=== PATIENT | female | born 2005 | race Two or more races ===

== ENCOUNTER 2023-05-24 06:09 | Inpatient (IN) ==
[2023-05-24 06:54] LABS: Appearance Urine Cloudy (Clear); Bacteria Urine Automated 1+ (Negative); Bilirubin Urine Negative (Negative); Blood Urine Negative (Negative); Color Urine Yellow; Epithelial Cell Urine Auto >30 /lpf (0-5); Glucose Urine UA Negative (Negative); Ketones Urine Trace (Negative); Leukocyte Esterase Urine 2+ (Negative); Nitrite Urine Negative (Negative); Protein Urine Negative (Negative); RBC Urine Automated 0-4 /hpf (0-4); Specific Gravity Urine 1.028 (1.000-1.030); Urobilinogen Urine Negative (Negative); pH Urine 5.5 (4.5-7.5)
[2023-05-24 07:09] LABS: Basophils # (auto) 0.03 K/uL (0.00-0.20); Basophils % (auto) 0.4 %; Eosinophils # (auto) 0.04 K/uL (0.00-0.50); Eosinophils % (auto) 0.5 %; Hematocrit (blood only) 41.7 % (37.0-47.0); Hemoglobin 13.7 g/dl (12.0-16.0); Immature Granulocytes # (auto) 0.03 K/uL (0.01-0.20); Immature Granulocytes % (auto) 0.4 %; Lymphocytes # (auto) 2.26 K/uL (1.20-3.40); Mean Corpuscular Hemoglobin 28.4 pg (25.0-34.0); Mean Corpuscular Hgb Conc 32.9 g/dL (32.0-36.0); Mean Corpuscular Volume 86.5 fL (80.0-100.0); Mean Platelet Volume 11.2 fL (9.4-12.4); Monocytes # (auto) 0.55 K/uL (0.11-0.59); Monocytes % (auto) 7.1 %; Neutrophils # (auto) 4.87 K/uL (1.40-6.50); Neutrophils % (auto) 62.6 %; Platelet Count 238 K/uL (130-400); RDW Standard Deviation 41.1 fL (36.4-46.3); Red Blood Count 4.82 M/uL (4.20-5.40); White Blood Count 7.78 K/ul (4.8-10.8)
[2023-05-24 07:18] LABS: Mucus Urine Present (None Prsent)
[2023-05-24 07:19] LABS: Amphetamines+Metham, Urine Neg (Neg); Barbiturates, Urine Neg (Neg); Benzodiazepine, Urine Neg (Neg); Cocaine, Urine Neg (Neg); MDMA (Ecstacy), Urine Neg (Neg); Marijuana, Urine Pos (Neg); Methadone, Urine Neg (Neg); Opiate, Urine Neg (Neg); Phencyclidine, Urine Neg (Neg)
[2023-05-24 07:25] LABS: Alanine Aminotransferase 8 U/L (7-52); Albumin Globulin Ratio 1.5 (0.9-2); Albumin Level 4.7 gm/dl (3.4-5.0); Alkaline Phosphatase 48 U/L (34-104); Anion Gap 8 (3-11); Aspartate Aminotransferase 15 U/L (13-39); BUN Creatinine Ratio 15.9 (10-20); Bilirubin,Total 0.4 mg/dl (0.2-1.0); Blood Urea Nitrogen 11 mg/dl (6-23); Calcium 9.2 mg/dl (8.6-10.3); Carbon Dioxide 23 mmol/L (21-32); Chloride 107 mmol/L (98-107); Creatine Kinase 44 U/L (26-192); Creatinine Clr Calc Pharmacy 88.3 ml/min; Est GFR (African American) 145.2 ml/min; Est GFR (Non-African American) 125.3 ml/min; Globulin 3.2 gm/dl (2.5-4.0); Glucose 100 mg/dl (70-99(Fasting)); Magnesium 1.9 mg/dl (1.7-2.4); Potassium 3.6 mmol/L (3.5-5.1); Sodium 138 mmol/L (136-145); Total Protein 7.9 gm/dl (6.0-8.3)
[2023-05-24 07:32] LABS: Acetaminophen 171 ug/ml (10-30); Salicylate < 3.0 mg/dl (3.0-30); Troponin I High Sensitivity < 2.3 pg/ml (0-14)
[2023-05-24 07:56] LABS: Pregnancy Test, Serum Negative (Negative); Prothrombin Time 10.6 Seconds (9.0-12.0)
[2023-05-24] MEDS: SODIUM CHLORIDE 0.9% 1,000 ML IV ONE (08:04)
--- NOTE | 2023-05-24 09:33 | Emergency Department Note ---
Impression & Plan Intentional overdose, Acetaminophen overdose ED Provider Note CHIEF COMPLAINT: Mental health evaluation, overdose HISTORY OF PRESENT ILLNESS: This 18 yo female patient presents to the emergency department with complaints of a Tylenol overdose. The patient states she took "2 handfuls" of extra strength acetaminophen at 5:45 AM. She states her boyfriend informed her that he cheated on her. She has not had thoughts of suicide prior to this. She denies any alcohol or substance abuse otherwise. She denies any history of mental health issues. She does not believe that she is . REVIEW OF SYSTEMS: A review of systems was performed with positives and pertinent negatives listed in the history of present illness. 10 systems were reviewed and are otherwise negative. ALLERGIES: see below MEDICATIONS: see below PMH: see below SOCIAL HISTORY: see below DDx:Mood disorder, infection, hypoglycemia, toxicologic, neurologic, as well as other pathologies. PHYSICAL EXAM: Vital signs reviewed. General: Well-appearing 18-year-old female, in no significant distress. HEENT: No scleral icterus, PERRLA, neck supple. Moist mucous membranes. Cardiovascular: Regular rate and rhythm, no extra sounds. Pulmonary: Clear to auscultation bilaterally, normal work of breathing. Abdomen: Soft, nontender, nondistended, positive bowel sounds. Musculoskeletal: Atraumatic, no peripheral edema. Neurologic: Patient awake alert and oriented x 3, speech is clear Psych: Positive SI with active furtherance, negative HI Skin: Warm, dry, no rash EMERGENCY DEPARTMENT COURSE/MDM: This patient was evaluated and appeared to be in no significant distress. IV access was obtained and laboratory work was drawn. The patient was placed on the manager cardiac, hydrated with normal saline solution. Patient's laboratory work reveals a toxic 5-hour level of Tylenol. Transaminases are not elevated. Per poison control, they have recommended the N-acetylcysteine protocol. Patient was started on the 21-hour protocol and the case was discussed with the hospitalist service for admission and psychiatric consultation. Patient is currently on a 201, voluntary for admission. MONITORING: An order for cardiac monitoring was placed and the patient is noted to be in a normal sinus rhythm at 94 beats per minute. EKG: Normal sinus rhythm with sinus arrhythmia at 89 bpm. QTc is 438. Normal ST segments. No PVC, no PAC. No previous EKGs available. DISPOSITION: Admission Past Med/Surg History Social History Smoking Status: Never smoker Second Hand Exposure: No; Do You Dip or Chew Tobacco: No; Hx Alcohol Use: Yes Hx Substance Use: Yes Last Used Substance: Unknown Preferred Language: Eritrean Communication Ability: Effective Digital Circuit Designer Required: No Beliefs That Will Affect Care: None Current Living Situation Comment: lives in dorm at [facility] Feels Safe at Home: Yes Gender Identity: Female Assistive Devices: Glasses Allergies Allergies Allergy/AdvReac Type Severity Reaction Status Date / Time No Known Allergies Allergy Unverified 05/24/23 07:30 Home Meds Home Medications Medication Instructions Recorded Confirmed No Known Home Medications 05/24/23 05/25/23 Results & Data (ED) Vital Signs Vital Signs - 24 hr 05/24/23 06:15 05/24/23 06:48 05/24/23 07:02 Temperature 36.7 C Temperature Source Oral Pulse Rate 76 80 Pulse Rate [Apical] Pulse Rhythm Regular Pulse Rhythm [Apical] Respiratory Rate 16 18 Respiratory Effort / Characteristics Non-Labored Respiratory Depth Normal Respiratory Pattern Blood Pressure 122/77 Blood Pressure [Left Arm] Blood Pressure Mean 92 Blood Pressure Mean [Left Arm] Blood Pressure Position [Left Arm] Pulse Oximetry 98 99 Oxygen Delivery Method Room Air Room Air Room Air Sepsis Recent Fever Within 48 Hours No Sepsis New/Unexplained Change in Mental Status N/A Sepsis Action Taken by Nursing No Action Required 05/24/23 07:02 05/24/23 08:01 05/24/23 08:19 Temperature Temperature Source Pulse Rate 107 H Pulse Rate [Apical] 112 H 94 H Pulse Rhythm Pulse Rhythm [Apical] Regular Respiratory Rate 14 14 Respiratory Effort / Characteristics Respiratory Depth Respiratory Pattern Blood Pressure Blood Pressure [Left Arm] 112/73 118/92 Blood Pressure Mean Blood Pressure Mean [Left Arm] 86 100 Blood Pressure Position [Left Arm] Pulse Oximetry 96 97 Oxygen Delivery Method Room Air Sepsis Recent Fever Within 48 Hours Sepsis New/Unexplained Change in Mental Status Sepsis Action Taken by Nursing 05/24/23 09:00 05/24/23 10:00 05/24/23 11:04 Temperature Temperature Source Pulse Rate Pulse Rate [Apical] 94 H 85 78 Pulse Rhythm Pulse Rhythm [Apical] Respiratory Rate 14 12 18 Respiratory Effort / Characteristics Non-Labored Spontaneous Respiratory Depth Normal Respiratory Pattern Regular Blood Pressure Blood Pressure [Left Arm] 107/68 90/61 L 82/59 L Blood Pressure Mean Blood Pressure Mean [Left Arm] 81 70 66 Blood Pressure Position [Left Arm] Lying Pulse Oximetry 99 98 97 Oxygen Delivery Method Room Air Room Air Room Air Sepsis Recent Fever Within 48 Hours Sepsis New/Unexplained Change in Mental Status Sepsis Action Taken by Nursing 05/24/23 12:02 05/24/23 12:18 Temperature Temperature Source Pulse Rate 90 Pulse Rate [Apical] 79 Pulse Rhythm Pulse Rhythm [Apical] Respiratory Rate 18 Respiratory Effort / Characteristics Non-Labored Spontaneous Respiratory Depth Normal Respiratory Pattern Regular Blood Pressure Blood Pressure [Left Arm] 106/72 Blood Pressure Mean Blood Pressure Mean [Left Arm] 83 Blood Pressure Position [Left Arm] Sitting Pulse Oximetry 98 Oxygen Delivery Method Room Air Sepsis Recent Fever Within 48 Hours Sepsis New/Unexplained Change in Mental Status Sepsis Action Taken by [facility] Medications Current Medication List: was personally reviewed by me Laboratory Data Attestation: I reviewed the patient's lab results. 05/25/23 06:13 05/25/23 15:59 Lab Results 05/24/23 05/24/23 05/24/23 Range/Units 06:22 06:43 06:45 WBC 7.78 (4.8-10.8) K/ul RBC 4.82 (4.20-5.40) M/uL Hgb 13.7 (12.0-16.0) g/dl Hct 41.7 (37.0-47.0) % MCV 86.5 (80.0-100.0) fL MCH 28.4 (25.0-34.0) pg MCHC 32.9 (32.0-36.0) g/dL RDW Std Deviation 41.1 (36.4-46.3) fL RDW Coeff of Naomi 13.0 (11.5-14.5) % Plt Count 238 (130-400) K/uL MPV 11.2 (9.4-12.4) fL Immature Gran % (Auto) 0.4 % Neut % (Auto) 62.6 % Lymph % (Auto) 29.0 % [place] % (Auto) 7.1 % Eos % (Auto) 0.5 % Baso % (Auto) 0.4 % Neut # (Auto) 4.87 (1.40-6.50) K/uL Lymph # (Auto) 2.26 (1.20-3.40) K/uL [place] # (Auto) 0.55 (0.11-0.59) K/uL Eos # (Auto) 0.04 (0.00-0.50) K/uL Baso # (Auto) 0.03 (0.00-0.20) K/uL Immature Gran # (Auto) 0.03 (0.01-0.20) K/uL PT 10.6 (9.0-12.0) Seconds INR 1.0 (0.9-1.1) Sodium 138 (136-145) mmol/L Potassium 3.6 (3.5-5.1) mmol/L Chloride 107 (98-107) mmol/L Carbon Dioxide 23 (21-32) mmol/L Anion Gap 8 (3-11) BUN 11 (6-23) mg/dl Creatinine 0.69 (0.6-1.2) mg/dl Est Cr Clr Drug Dosing 88.3 ml/min Est GFR ( Amer) 145.2 ml/min Est GFR (Non-Af Amer) 125.3 ml/min BUN/Creatinine Ratio 15.9 (10-20) Glucose 100 H (70-99(Fasting)) mg/dl Calcium 9.2 (8.6-10.3) mg/dl Magnesium 1.9 (1.7-2.4) mg/dl Total Bilirubin 0.4 (0.2-1.0) mg/dl Direct Bilirubin AST 15 (13-39) U/L ALT 8 (7-52) U/L Alkaline Phosphatase 48 (34-104) U/L Total Creatine Kinase 44 (26-192) U/L Troponin I High Sens < 2.3 (0-14) pg/ml Total Protein 7.9 (6.0-8.3) gm/dl Albumin 4.7 (3.4-5.0) gm/dl Globulin 3.2 (2.5-4.0) gm/dl Albumin/Globulin Ratio 1.5 (0.9-2) HCG, Qual Negative (Negative) Urine Color Yellow Urine Appearance Cloudy A (Clear) Urine pH 5.5 (4.5-7.5) Ur Specific [place] 1.028 (1.000-1.030) Urine Protein Negative (Negative) Urine Glucose (UA) Negative (Negative) Urine Ketones Trace H (Negative) Urine Blood Negative (Negative) Urine Nitrite Negative (Negative) Urine Bilirubin Negative (Negative) Urine Urobilinogen Negative (Negative) Ur Leukocyte Esterase 2+ H (Negative) Urine WBC (Auto) 10-30 H (0-5) /hpf Urine RBC (Auto) 0-4 (0-4) /hpf U Hyaline Cast (Auto) 1-5 (0-5) /lpf U Epithel Cells (Auto) >30 H (0-5) /lpf Urine Bacteria (Auto) 1+ H (Negative) Urine Mucus Present A (None Prsent) Salicylates < 3.0 L (3.0-30) mg/dl Urine Opiates Screen Neg (Neg) Ur Methadone, Qual Neg (Neg) Acetaminophen 171 H* (10-30) ug/ml Urine Barbiturates Neg (Neg) Ur Phencyclidine (PCP) Neg (Neg) U Amphetamin/Meth Scrn Neg (Neg) MDMA (Ecstasy) Screen Neg (Neg) U Benzodiazepines Scrn Neg (Neg) Ur Cocaine Metabolite Neg (Neg) U Marijuana (THC) Screen Pos H (Neg) Ethyl Alcohol mg/dL < 10.0 (<10.0) mg/dl SARS-CoV-2, RNA, NAAT NEGATIVE (NEGATIVE) 05/24/23 05/24/23 Range/Units 10:04 10:27 WBC (4.8-10.8) K/ul RBC (4.20-5.40) M/uL Hgb (12.0-16.0) g/dl Hct (37.0-47.0) % MCV (80.0-100.0) fL MCH (25.0-34.0) pg MCHC (32.0-36.0) g/dL RDW Std Deviation (36.4-46.3) fL RDW Coeff of Naomi (11.5-14.5) % Plt Count (130-400) K/uL MPV (9.4-12.4) fL Immature Gran % (Auto) % Neut % (Auto) % Lymph % (Auto) % [place] % (Auto) % Eos % (Auto) % Baso % (Auto) % Neut # (Auto) (1.40-6.50) K/uL Lymph # (Auto) (1.20-3.40) K/uL [place] # (Auto) (0.11-0.59) K/uL Eos # (Auto) (0.00-0.50) K/uL Baso # (Auto) (0.00-0.20) K/uL Immature Gran # (Auto) (0.01-0.20) K/uL PT (9.0-12.0) Seconds INR (0.9-1.1) Sodium Cancelled 140 (136-145) mmol/L Potassium Cancelled 3.6 (3.5-5.1) mmol/L Chloride Cancelled 114 H (98-107) mmol/L Carbon Dioxide Cancelled 20 L (21-32) mmol/L Anion Gap Cancelled 6 (3-11) BUN Cancelled 8 (6-23) mg/dl Creatinine Cancelled 0.58 L (0.6-1.2) mg/dl Est Cr Clr Drug Dosing Cancelled 105.0 ml/min Est GFR ( Amer) Cancelled > 150.0 ml/min Est GFR (Non-Af Amer) Cancelled 132.7 ml/min BUN/Creatinine Ratio Cancelled 13.8 (10-20) Glucose Cancelled 107 H (70-99(Fasting)) mg/dl Calcium Cancelled 8.3 L (8.6-10.3) mg/dl Magnesium (1.7-2.4) mg/dl Total Bilirubin Cancelled 0.4 (0.2-1.0) mg/dl Direct Bilirubin Cancelled 0.0 AST Cancelled 14 (13-39) U/L ALT Cancelled 8 (7-52) U/L Alkaline Phosphatase Cancelled 44 (34-104) U/L Total Creatine Kinase (26-192) U/L Troponin I High Sens (0-14) pg/ml Total Protein Cancelled 6.5 (6.0-8.3) gm/dl Albumin Cancelled 3.8 (3.4-5.0) gm/dl Globulin Cancelled 2.7 (2.5-4.0) gm/dl Albumin/Globulin Ratio Cancelled 1.4 (0.9-2) HCG, Qual (Negative) Urine Color Urine Appearance (Clear) Urine pH (4.5-7.5) Ur Specific [place] (1.000-1.030) Urine Protein (Negative) Urine Glucose (UA) (Negative) Urine Ketones (Negative) Urine Blood (Negative) Urine Nitrite (Negative) Urine Bilirubin (Negative) Urine Urobilinogen (Negative) Ur Leukocyte Esterase (Negative) Urine WBC (Auto) (0-5) /hpf Urine RBC (Auto) (0-4) /hpf U Hyaline Cast (Auto) (0-5) /lpf U Epithel Cells (Auto) (0-5) /lpf Urine Bacteria (Auto) (Negative) Urine Mucus (None Prsent) Salicylates (3.0-30) mg/dl Urine Opiates Screen (Neg) Ur Methadone, Qual (Neg) Acetaminophen Cancelled 138 H (10-30) ug/ml Urine Barbiturates (Neg) Ur Phencyclidine (PCP) (Neg) U Amphetamin/Meth Scrn (Neg) MDMA (Ecstasy) Screen (Neg) U Benzodiazepines Scrn (Neg) Ur Cocaine Metabolite (Neg) U Marijuana (THC) Screen (Neg) Ethyl Alcohol mg/dL (<10.0) mg/dl SARS-CoV-2, RNA, NAAT (NEGATIVE) Administered Medications Discontinued Medications Acetylcysteine (Acetylcysteine Iv 21 Hr Regimen (>40kg)) 1 each IV NOW STA; Protocol Stop: 05/24/23 11:14 Last Admin: 05/24/23 13:14 Dose: Not Given Documented By: SONIDO Famotidine (Famotidine 20mg/5ml Iv Push) Confirm Administered Dose 20 mg IV .STK-MED ONE Stop: 05/24/23 13:19 Last Admin: 05/24/23 13:23 Dose: Not Given Documented By: SOFIA Sodium Chloride (Nss) 1,000 mls @ 999 mls/hr IV .Q1H1M ONE Stop: 05/24/23 08:47 Last Infusion: 05/24/23 08:58 Dose: Infused Documented By: Admin: 05/24/23 08:04 Dose: 999 mls/hr Documented By: GLORIA Acetylcysteine 6,450 mg/ (Dextrose) 232.25 mls @ 200 mls/hr IV ONCE ONE; Protocol Stop: 05/24/23 12:22 Last Infusion: 05/24/23 13:15 Dose: Infused Documented By: Admin: 05/24/23 11:58 Dose: 200 mls/hr Documented By: SONIDO Acetylcysteine 2,150 mg/ (Dextrose) 510.75 mls @ 125 mls/hr IV ONCE ONE; Protocol Stop: 05/24/23 16:18 Last Infusion: 05/24/23 18:05 Dose: Infused Documented By: Admin: 05/24/23 13:13 Dose: 125 mls/hr Documented By: SONIDO Acetylcysteine 4,300 mg/ (Dextrose) 1,021.5 mls @ 62.5 mls/hr IV ONCE ONE; Protocol Stop: 05/25/23 08:33 Last Infusion: 05/25/23 11:07 Dose: Infused Documented By: Admin: 05/24/23 18:05 Dose: 62.5 mls/hr Documented By: TALAT Famotidine 20 mg/ Syringe 5 mls @ 2.5 mls/min IV NOW ONE Stop: 05/24/23 13:16 Last Admin: 05/24/23 13:22 Dose: 2.5 mls/min Documented By: SOFIA Pantoprazole Sodium 40 mg/ (Syringe) 10 mls @ 5 mls/min IV NOW ONE Stop: 05/24/23 14:01 Last Admin: 05/24/23 15:34 Dose: 5 mls/min Documented By: TALAT Potassium Chloride (K John / Wtr) 10 meq in 100 mls @ 100 mls/hr IV ONE ONE Stop: 05/24/23 20:23 Last Infusion: 05/24/23 22:04 Dose: Infused Documented By: Admin: 05/24/23 20:27 Dose: 100 mls/hr Documented By: JAIDEN Acetylcysteine 4,300 mg/ (Dextrose) 1,021.5 mls @ 63.844 mls/hr IV NOW ONE; Protocol Stop: 05/26/23 02:29 Last Infusion: 05/25/23 18:17 Dose: Infused Documented By: Admin: 05/25/23 10:54 Dose: 63.8 mls/hr Documented By: FELIPE Miscellaneous (Stat Iv/Im) 1 each N/A NOW STA Stop: 05/24/23 11:14 Last Admin: 05/24/23 13:14 Dose: Not Given Documented By: SONIDO Ondansetron HCl (Ondansetron Inj 2 Mg/Ml 2 Ml Vial) 4 mg IV NOW STA Stop: 05/24/23 10:16 Last Admin: 05/24/23 10:20 Dose: 4 mg Documented By: PAUL Ondansetron HCl (Ondansetron Inj 2 Mg/Ml 2 Ml Vial) 4 mg IV NOW STA Stop: 05/24/23 13:50 Last Admin: 05/24/23 15:34 Dose: 4 mg Documented By: TALAT Discharge Plan Visit Data Chief Complaint: Overdose (Intentional) Stated Complaint: OVERDOSE OF TYLENOL ED Provider: Yuridia Doan Discharge Problem: Intentional overdose, Acetaminophen overdose Patient Disposition: Admitted As Inpatient Discharge Instructions Interventions: ED Discharge Assessment Last Done: 05/25/23 19:59
[2023-05-24] MEDS: ONDANSETRON INJ 2 MG/ML 2 ML VIAL IV STA ×2 (10:20→15:34)
[2023-05-24 11:05] LABS: Albumin Level 3.8 gm/dl (3.4-5.0); Anion Gap 6 (3-11); Bilirubin,Total 0.4 mg/dl (0.2-1.0); Calcium 8.3 mg/dl (8.6-10.3); Carbon Dioxide 20 mmol/L (21-32); Chloride 114 mmol/L (98-107); Potassium 3.6 mmol/L (3.5-5.1); Sodium 140 mmol/L (136-145)
[2023-05-24 11:11] LABS: Alanine Aminotransferase 8 U/L (7-52); Albumin Globulin Ratio 1.4 (0.9-2); Alkaline Phosphatase 44 U/L (34-104); Aspartate Aminotransferase 14 U/L (13-39); BUN Creatinine Ratio 13.8 (10-20); Blood Urea Nitrogen 8 mg/dl (6-23); Est GFR (African American) > 150.0 ml/min; Est GFR (Non-African American) 132.7 ml/min; Globulin 2.7 gm/dl (2.5-4.0); Glucose 107 mg/dl (70-99(Fasting)); Total Protein 6.5 gm/dl (6.0-8.3)
--- NOTE | 2023-05-24 11:45 | History & Physical Report ---
Date of Service May 24, 2023 Assessment & Plan (1) Intentional overdose: Plan: Patient reportedly took 2 handfuls of Tylenol (approximately 15-20 pills) intentionally at 0530 on 05/24 She was on FaceTime with her boyfriend at that time, and boyfriend called 911 First suicide attempt; she reports she had thoughts of self-harm at the time, but this was impulsive, and she does not currently have plans to harm herself or SI Patient denies thoughts of harming others Patient reports she is amenable to speaking with psychiatry prior to discharge, and would like additional resources upon discharge for outpatient therapy Acetaminophen level elevated at 171-->138 on recheck NAC protocol started in the ED within 4 hours Trend acetaminophen level, mag, Phos, BMP q4h Psychiatry consulted; she will require clearance prior to discharge Case management consulted for resources for outpatient therapy Patient was initially placed as a 1-to-1 observation; after conversation with psychiatry, okay to discontinue Safe tray Patient requires psych med bed A.m. CBC, BMP Plan Disposition: Admit to Full code Regular diet, safe tray VTE PPx: SCDs History of Present Illness Chief Complaint: Overdose (intentional) Primary Care Provider: NO PCP Jonny is a 18-year-old female without significant PMH. She presented for an intentional overdose on the morning of 05/24. She reportedly took 2 handfuls of acetaminophen (around 15 to 20 tablets) while on FaceTime with her boyfriend after she found out that he cheated on her. This was around 05:30am this morning. Boyfriend called 911 and she was brought into the emergency room. At time of admission, she reports that she wanted to harm herself that morning, but had no thoughts of harming others. No prior suicidal attempts. Patient denies co-ingestion with any other substances. She denies alcohol use, tobacco use, or other recreational drug use. She reports that she regrets her decision to take the Tylenol, and is not currently having thoughts of self-harm, SI, or a plan to harm herself upon discharge. She denies hallucinations, vision changes, altered mental status, or confusion this morning. She does endorse having a prior history of anxiety, and has tried outpatient therapy in the past. She reports that she does have a good support system of friends, and that she is close with her parents, however she does not want her parents to know of her current Tylenol overdose. No prior liver issues. She denies PMH of MS, DVT/PE, diabetes, or psychiatric disorders beyond anxiety. She does take control. Patient is hypotensive at 82/59 at time of admission; vitals otherwise stable. ED course: Acetylcysteine protocol NSS 1000 L IV Zofran 4 mg IV ROS: Patient endorses some brain fog and confusion following the events of overdose. Patient denies fever, chills, dizziness, lightheadedness, headache, chest pain, SOB, abdominal pain, N/V/D, or numbness or tingling in arms or legs. Allergies Allergy/AdvReac Type Severity Reaction Status Date / Time No Known Allergies Allergy Unverified 05/24/23 07:30 Home Medications Medication Instructions Recorded Confirmed Type No Known Home Medications 05/24/23 05/24/23 History Past Med/Surg History Social History Smoking Status: Never smoker Second Hand Exposure: No; Do You Dip or Chew Tobacco: No; Tobacco Cessation Education Requested by Patient: No Hx Alcohol Use: Yes Hx Substance Use: Yes Last Used Substance: Unknown Preferred Language: South [place] Communication Ability: Effective Security Investigator Required: No Beliefs That Will Affect Care: None Current Living Situation Comment: lives in dorm at [facility] Other Information That Helps Us Care for You: No Feels Safe at Home: Yes Safety Concerns: Feels Safe At This Time Gender Identity: Female Assistive Devices: Glasses Review of Systems Review of Systems: See HPI above Physical Exam Physical Exam: General: no acute distress; anxious; non-toxic appearing; frail; thin; cooperative HEENT: normocephalic, atraumatic; no scleral icterus; PERRLA w/ EOMs intact; moist mucus membrane; vision and hearing grossly intact Neck: supple; no lymphadenopathy; trachea midline Skin: warm, dry without signs of tenting; no cyanosis; no rashes, bruising, lesions, or erythema noted CV: chest wall NTP; RRR; S1/S2 normal; no murmurs/rubs/gallops; pulses intact and symmetric at radial, DP, and PT Lungs: no acute respiratory distress; symmetrical chest wall expansion; clear breath sounds across all lung mcdonald w/o adventitious sounds; no wheezing ABD: Soft, NTP; RLQ NTP; BS present; no rebound/guarding; no ascites; no distention; no rashes or bruising on the abdomen noted MSK: no tics or fasciculations; no edema noted in the LEs b/l, nonerythematous Neuro: A&Ox3; normal mood and affect; fluent speech; no focal deficits; sensation grossly intact in the LEs b/l Results & Data Results & Data Vital Signs (Past 12 Hours) Vital Signs Temp Pulse Pulse Resp BP BP Pulse Ox 05/24/23 11:04 78 18 82/59 L 97 05/24/23 10:00 85 12 90/61 L 98 05/24/23 09:00 94 H 14 107/68 99 05/24/23 08:19 107 H 05/24/23 08:01 94 H 14 118/92 97 05/24/23 07:02 112 H 14 112/73 96 05/24/23 07:02 05/24/23 06:48 80 18 99 05/24/23 06:15 36.7 C 76 16 122/77 98 O2 Del Method 05/24/23 11:04 Room Air 05/24/23 10:00 Room Air 05/24/23 09:00 Room Air 05/24/23 08:19 05/24/23 08:01 Room Air 05/24/23 07:02 05/24/23 07:02 Room Air 05/24/23 06:48 Room Air 05/24/23 06:15 Room Air Laboratory Results Abnormal lab results 05/24/23 05/24/23 05/24/23 Range/Units 06:22 06:43 10:27 Chloride 114 H (98-107) mmol/L Carbon Dioxide 20 L (21-32) mmol/L Creatinine 0.58 L (0.6-1.2) mg/dl Glucose 100 H 107 H (70-99(Fasting)) mg/dl Calcium 8.3 L (8.6-10.3) mg/dl Urine Appearance Cloudy A (Clear) Urine Ketones Trace H (Negative) Ur Leukocyte Esterase 2+ H (Negative) Urine WBC (Auto) 10-30 H (0-5) /hpf U Epithel Cells (Auto) >30 H (0-5) /lpf Urine Bacteria (Auto) 1+ H (Negative) Urine Mucus Present A (None Prsent) Salicylates < 3.0 L (3.0-30) mg/dl Acetaminophen 171 H* 138 H (10-30) ug/ml U Marijuana (THC) Screen Pos H (Neg) Code Status & VTE Plan Code Status Full code VTE Prophylaxis Plan VTE Prophylaxis will be ordered: Yes Supervising Physician Co-Signing Physician Notes Patient seen and examined, chart reviewed, case discussed with Elfego Rader and I agree with the assessment and plan as above except as otherwise noted Labs and images reviewed Joanna' is a 18-year-old female with a history of anxiety/depression who presents with attempted suicide attempt via handful of Tylenol after she found out her boyfriend cheated on her via Skype. Police were called by boyfriend and patient was brought in for medical evaluation. Initial Tylenol level was 131, recheck 4 hours later downtrending at 138. Time of ingestion was approximately 545am. She was initiated on the 21-hour NAC protocol, Tylenol is downtrending at time of recheck. There is no transaminitis. Patient denies Co. ingestion. Salicylate level is negative, urine tox is positive for marijuana otherwise negative. Alcohol screen is negative. At time of admission patient expresses remorse over the decision. Agreeable to psych consultation. Agree with assessment and management above including LFT trend, completion of NAC protocol, psych consultation. She is nontoxic. Mild metabolic acidosis noted, BMP trended. PG Care Time/CCT Total # of Minutes Spent Total Time Spent with Patient: Total time spent is greater than 50% in coordination of care (as documented) at patient's floor/unit and/or counseling patient: [place] [address] INT INP/OBS CARE 2/55MIN Patient Type New History Comprehensive Exam Comprehensive Medical Decision Making Moderate Complexity Diagnoses Intentional overdose T50.902A
[2023-05-24] MEDS ORDERED: ONDANSETRON INJ 2 MG/ML 2 ML VIAL IV PRN (12:41)
[2023-05-24] MEDS: STAT IV/IM STA (13:14)
[2023-05-24] MEDS: AcetylCYSTEINE IV 21 HR REGIMEN (>40KG) IV STA (13:14)
[2023-05-24] MEDS: FAMOTIDINE 20 MG in SYRINGE 3 ML IV ONE (13:22)
[2023-05-24] MEDS: FAMOTIDINE 20MG/5ML IV PUSH IV ONE (13:23)
[2023-05-24] MEDS: PANTOprazole 40 MG in SYRINGE 0 ML IV ONE (15:34)
--- NOTE | 2023-05-24 15:45 | Psychiatric Consultation ---
Date of Consultation May 24, 2023 Impression / Recommendations Impression Essentially, what we seem to have here is a young woman who may be emotionally less mature than her age might suggest who made a very impulsive, but deliberate, suicide attempt by overdose of Tylenol. She strikes me is a reasonably intelligent woman, and is perhaps hard to imagine that she did not realize that taking 15 qldz-dbw-lptzimz acetaminophen tablets were not going to kill her. However, she insist that she believed that it would, and that she had suicidal intent when she took the overdose. She is still clearing medically, but during the interview today she was alert and fully oriented. Her affect was bright, and she said that her mood was "good." My understanding is that the patient may have used visitors phone to communicate throughout the day with her boyfriend; i.e., the young man over home she had made a suicide attempt. The patient tells me with a broad smile that they have reconciled, and she mentions that she is delighted by the reconciliation because it is her hope that 1 day [soon] they will . Of course the risk, both short-term and long-term, is that she will have a similar behavioral reaction should she suffer a romantic disappointment with young man in question. When I asked her what she would do if, say a few months from now, he called her up and told her that he had found someone else and wanted to break up patient said, "well, I will be really sad an d upset, but what I want to do is take another overdose. That was really stupid. I guess I will grieve and then move on." (1) Intentional overdose: 05/24/23: Although the patient denies any psychiatric history and although she also reports that she has not been feeling depressed, her description of developing almost immediate suicidal intent, and then acting on that intent, based largely on suspicion that her boyfriend was cheating on her with another woman suggests a certain regulation difficulty, characterized largely by compulsivity and emotional lability. By the afternoon of the day and when she took an overdose the patient is seen that she had suicidal intent in the morning when she took an overdose of Tylenol, but no such intent or thoughts of suicide remain. She does understand that the impulsive and potentially lethal nature of her act suggest that there is a problem, and she is willing to come to the locked psychiatric inpatient unit at [facility] when cleared medically. Present on Admission?: Yes Psych History Identifying Data Ms. Jonny Branham is a 18-year-old freshman at [employer]. Originally from [place], the patient's mother and father live in [facility] [place], and her brother is currently a student at [employer]. He was admitted to the medical service this morning after she presented following a deliberate overdose of acetaminophen, subsequent to an issue with her boyfriend. Chief Complaint "Yes, I took an overdose of Tylenol. It is no one's fault but my own. What I did was stupid.". History of Present Illness The patient is a 18-year-old woman who is currently a second semester freshman student at [employer]. She tells me that she is doing well in school and has a number of local friends. She also likes [facility], tells me that she finds [place] to be a delightful place to live. Her boyfriend lives in [place], and they often communicate telephonically or electronically. As best I can tell, yesterday the patient thought that she had reason to believe that her boyfriend was, or might be cheating on her with another woman. (Note: She later this probably was not the case.) Subsequently, and in a highly emotional state, the patient took a Lembert overdose of acetaminophen (Tylenol). She estimates that she took approximately 15 acetaminophen tablets. She notes that she thought that her first handful of tablets was comprised of 9 tablets, and then she said she took "about half a get as many" with the next handful. She was on the telephone with her boyfriend at the time, told him which she had done, and he called the police for a wellness check. Reportedly, a count of her Tylenol bottle's contents indicated that approximately 15 tablets were missing. The patient was then transported to [facility] emergency department and was admitted to the hospital, but is currently boarding in the emergency department while she waits for an available bed on the medical floor. She is not yet cleared medically and is not expected to be cleared medically for approximately another day. The patient tells me that she never had any suicidal ideation prior to this morning, and she has never intentionally caused physical harm to herself. However, this morning she admitted that she had an intent to when she took the overdose of Tylenol, and now is very glad that she did not. The mitigating factor here is that according the patient she and her boyfriend have reconciled, and she tells me that their long-term plan is to . I ask her if she had any thoughts about that decision, given her remaining uncertainty as to whether her boyfriend was cheating on her. She told me that she wants to him because she is in love with him she realizes that she may need to make certain compromises. He has Shuchismita tells me that she is not aware of any other stressors in her life. She reports that she is doing well in school, and meeting the necessary GPA to sustain her scholarships. She has formed a number of friends at [employer], and, as noted above, she is fond of both [employer] and [place] [employer]. Her parents live in [facility] [place] [facility] [place], but is not clear if she has notified them. The patient reports no premorbid psychiatric history and no previous contact with a psychiatric [facility]. She also reports that she has never taken medications, and has never been treated for depression. Past Psychiatric History Previous Psych History: As above, the patient reports that she has no previous psychiatric history. Current Psychiatric Diagnosis: Denies Outpatient Services: He does not currently have, nor has she ever had any contact with the psychiatric community Previous Psych Admissions: The patient reports that she has no history of psychiatric admissions Do You Have Access To A Gun?: No History of Previous Suicide Attempt: No Describe Attempts in the Past: Patient insist that she has no history of intentional self-injurious, Past Medication Trials: There is no history of any treatment with psychiatric medications. Additional Notes: Patient notes that she was not feeling depressed prior to today's unhappy interaction with her boyfriend. She does state that she had not slept well and was tired at the time. 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 The patient is dressed in a hospital gown and is sitting upright, with her legs crossed, and a bed in the emergency room psychiatric holding area. She is being monitored electronically. The patient has fair eye contact, although she sometimes turns her head away when discussing but I would imagine her "touchy subjects." No abnormal involuntary movements. Patient's speech is spontaneous. Her volume level sinks and raises, but it is generally audible. Also, the patient speaks with a normal rate and rhythm. This is the patient's second language, but she speaks it well. Fairly bright. She does giggle and laugh inappropriately several times during When asked about her mood, the patient tells me that currently it is "good." I suspect that what has happened between this morning and this afternoon (which is when I saw her) she and her boyfriend had reconciled. Patient's thought processes demonstrate tight associations Her thought content is devoid of any psychotic features. The patient admits to suicidal thoughts this morning, and those thoughts included a suicidal plan as well as the suicidal intent. However, she also admits that her deliberate overdose of Tylenol was impulsive. She now reports that she has no thoughts of suicide and identifies the overdose that she took this morning as being "really stupid." She also reports that she has never had any suicidal thoughts before this morning. Patient reports that she has no history of thoughts of deliberately causing physical harm to the person or property of others. The patient reports that she has never experienced any perceptual disturbances, such as hearing voices that other people are not able to hear, or seeing things that other people are not able to see. Patient's immediate, recent, and remote memory is intact. Above average. Vital Signs (Past 24 Hours): Last Vital Signs Temp 36.7 C 05/24/23 06:15 Pulse 90 05/24/23 15:11 Resp 18 05/24/23 15:11 BP 126/72 05/24/23 15:11 Pulse Ox 100 05/24/23 15:11 O2 Del Method Room Air 05/24/23 15:11 Review of Systems Well-appearing. Thin body habitus No ophthalmologic abnormalities Ears nose mouth or throat concerns. There are no respiratory difficulties. Additional Comments: The patient reports no history of cardiac problems The patient reports no gastrointestinal complaints or problems. Patient reports no genital or urinary problems. Patient reports that she has no history of muscular or skeletal qualities. She reports no history of seizures, concussion, or head injuries of any sort. No psychiatric problems except as noted above. The patient reports that she has never been depressed, never has had problems with anxiety, and has never had any encounterdirectly or indirectlywith the psychiatric community. Results & Data (PSY) Diagnostic Findings Unspecified mood disorder Medications Administered Acetylcysteine 2,150 mg/ (Dextrose) 510.75 mls @ 125 mls/hr IV ONCE ONE; Protocol Stop: 05/24/23 16:18 Last Admin: 05/24/23 13:13 Dose: 125 mls/hr Documented By: SONIDO [place] [address] IN/OBS CONSULT LVL 3,45M Patient Type New History Expanded Problem Focused Exam Expanded Problem Focused Diagnoses Intentional overdose T50.902A Time Spent (min) 50 Comment This includes [id number] evaluation of the patient, record review, and meeting with dominick
[2023-05-24 16:05] LABS: Albumin Globulin Ratio 1.3 (0.9-2); Albumin Level 3.8 gm/dl (3.4-5.0); BUN Creatinine Ratio 11.1 (10-20); Bilirubin,Total 0.7 mg/dl (0.2-1.0); Calcium 8.5 mg/dl (8.6-10.3); Creatinine Clr Calc Pharmacy 96.7 ml/min; Est GFR (African American) 149.7 ml/min; Est GFR (Non-African American) 129.1 ml/min; Globulin 2.9 gm/dl (2.5-4.0); Magnesium 1.9 mg/dl (1.7-2.4); Phosphorus 2.4 mg/dl (2.5-4.9); Potassium 3.3 mmol/L (3.5-5.1); Total Protein 6.7 gm/dl (6.0-8.3)
--- NOTE | 2023-05-24 16:32 | Communication Note ---
Date of Service: May 24, 2023 I agree that close observation on the mental health holding area and the emergency department is sufficient to provide a safe environment for the patien sonali. I believe that she is at low moderate for suicide at this point and this point every 15 minute checks will be sufficient. I do not believe that one-to-one observation remains necessary at this time.
[2023-05-24] MEDS: ACETYLCYSTEINE IV ONE (18:05)
[2023-05-24] MEDS: DEXTROSE 5% IV ONE (18:05)
[2023-05-24 20:07] LABS: Albumin Globulin Ratio 1.4 (0.9-2); Albumin Level 3.7 gm/dl (3.4-5.0); BUN Creatinine Ratio 7.8 (10-20); Bilirubin,Total 0.5 mg/dl (0.2-1.0); Calcium 8.5 mg/dl (8.6-10.3); Creatinine Clr Calc Pharmacy 95.2 ml/min; Est GFR (African American) 148.9 ml/min; Est GFR (Non-African American) 128.5 ml/min; Globulin 2.7 gm/dl (2.5-4.0); Potassium 3.4 mmol/L (3.5-5.1); Total Protein 6.4 gm/dl (6.0-8.3)
[2023-05-24] MEDS: POTASSIUM CHLORIDE / WTR 10 MEQ/100 ML PLCT IV ONE (20:27)
[2023-05-25 06:42] LABS: Hematocrit (blood only) 38.2 % (37.0-47.0); Hemoglobin 12.3 g/dl (12.0-16.0); Mean Corpuscular Hemoglobin 28.2 pg (25.0-34.0); Mean Corpuscular Hgb Conc 32.2 g/dL (32.0-36.0); Mean Corpuscular Volume 87.6 fL (80.0-100.0); Platelet Count 211 K/uL (130-400); RDW Standard Deviation 41.6 fL (36.4-46.3); Red Blood Count 4.36 M/uL (4.20-5.40); White Blood Count 6.16 K/ul (4.8-10.8)
--- NOTE | 2023-05-25 06:43 | Electrocardiogram Report ---
Test Reason : Blood Pressure : / mmHG Vent. Rate : 089 BPM Atrial Rate : 089 BPM P-R Int : 116 ms QRS Dur : 080 ms QT Int : 360 ms P-R-T Axes : 068 075 043 degrees QTc Int : 438 ms Normal sinus rhythm with sinus arrhythmia Normal ECG No previous ECGs available Confirmed by Darius Duong ([id number]) on 05/25/2023 6:43:39 AM Referred By: Confirmed By:Darius Duong
[2023-05-25 07:03] LABS: Basophils # (auto) 0.04 K/uL (0.00-0.20); Basophils % (auto) 0.6 %; Eosinophils # (auto) 0.09 K/uL (0.00-0.50); Eosinophils % (auto) 1.5 %; Immature Granulocytes # (auto) 0.02 K/uL (0.01-0.20); Immature Granulocytes % (auto) 0.3 %; Lymphocytes # (auto) 3.14 K/uL (1.20-3.40); Monocytes % (auto) 8.1 %; Neutrophils # (auto) 2.37 K/uL (1.40-6.50); Neutrophils % (auto) 38.5 %
[2023-05-25 07:07] LABS: BUN Creatinine Ratio 5.9 (10-20); Calcium 8.7 mg/dl (8.6-10.3); Creatinine Clr Calc Pharmacy 89.6 ml/min; Est GFR (African American) 145.9 ml/min; Est GFR (Non-African American) 125.9 ml/min; Potassium 3.6 mmol/L (3.5-5.1)
[2023-05-25 07:10] LABS: Albumin Level 3.9 gm/dl (3.4-5.0); Bilirubin Direct 0.1 mg/dl (0-0.2); Bilirubin,Total 0.7 mg/dl (0.2-1.0); Total Protein 6.4 gm/dl (6.0-8.3)
[2023-05-25 07:19] LABS: INR 1.2 (0.9-1.1); Prothrombin Time 12.6 Seconds (9.0-12.0)
[2023-05-25] MEDS: ACETYLCYSTEINE IV ONE (10:54)
[2023-05-25] MEDS: DEXTROSE 5% IV ONE (10:54)
--- NOTE | 2023-05-25 11:07 | Hospitalist Progress Note ---
Date of Service May 25, 2023 Assessment & Plan (1) Intentional overdose: Plan: Patient reportedly took 2 handfuls of Tylenol (approximately 15-20 pills) intentionally at 0530 on 05/24 - She was on FaceTime with her boyfriend at that time, and boyfriend called 911 - First suicide attempt; she reports she had thoughts of self-harm at the time, but this was impulsive, and she does not currently have plans to harm herself or SI Acetaminophen level elevated at 171-->138 --> now down to <3 NAC protocol started in the ED within 4 hours - 05/25 RN spoke with poison control and recommending another round of acetylcysteine due increasing LFTs (ordered) - repeat labs for 1600 Psych consulted - pt agreeable to inpatient stay after medical clearance - does not have to be a 1:1, 15 minute checks (2) Decrease in appetite: Plan: Since fall when starting college unintentional weight loss of 5-6kg Plan Disposition: continued inpatient stay VTE PPx: SCDs, encourage ambulation Admission and Anticipated Discharge Date Admission Date: May 24, 2023 Supervising Physician Co-Signing Physician Notes Attending Attestation - Chart reviewed, care plan d/w NATO Harris. I agree w/ the aguilar components of her documentation. Joe Hall MD Subjective Patient lying in bed, reports that her mood is "okay" Reports decreased appetite - states this has been an issues since she started college this fall. Reports that some days she will go 3-4 days without eating and does not get hungry. Weight was around 47-48kg prior to starting college, 43kg on admission. Reports that she always feels energized. sleep is irregular, sometimes 3-4 hrs, other times 7-8 and other times 11-12 hours a night Denies urinary symptoms, frequency, urgency, burning. No fevers or chills. Review of Systems Review of Systems: All systems reviewed & are unremarkable except as noted in Subjective Physical Exam Physical Exam: General: plesant, NAD, VS as above Resp: normal respiratory effort, lungs clear to auscultation CV: RRR, no murmur, Abd: normal bowel sounds, non tender, no hepatosplenomegaly Extremities: Moves all extremities, no edema Neuro: A&O x3, Results & Data Results & Data Vital Signs (Past 12 Hours) Vital Signs Pulse Pulse Resp BP BP Pulse Ox O2 Del Method 05/25/23 08:55 74 15 105/70 99 Room Air 05/25/23 07:42 70 15 94/53 L 99 Room Air 05/25/23 07:24 61 05/25/23 02:00 77 15 105/70 100 Room Air 05/25/23 00:00 94 H 16 124/81 99 Room Air 05/24/23 23:00 90 05/24/23 23:00 107 H 14 116/71 98 Room Air Laboratory Results CBC and chemistry reviewed PG Care Time/CCT Total # of Minutes Spent Total Time Spent with Patient: Total time spent is greater than 50% in coordination of care (as documented) at patient's floor/unit and/or counseling patient: Coding Level of Care Code 16962 SUB INP/OBS CARE 2/35MIN Diagnoses Intentional overdose T50.902A Decrease in appetite R63.0
[2023-05-25 16:31] LABS: Alanine Aminotransferase 21 U/L (7-52); Albumin Globulin Ratio 1.3 (0.9-2); Albumin Level 3.7 gm/dl (3.4-5.0); Alkaline Phosphatase 41 U/L (34-104); Anion Gap 4 (3-11); Aspartate Aminotransferase 19 U/L (13-39); BUN Creatinine Ratio 8.1 (10-20); Bilirubin,Total 0.4 mg/dl (0.2-1.0); Blood Urea Nitrogen 5 mg/dl (6-23); Calcium 9.1 mg/dl (8.6-10.3); Carbon Dioxide 25 mmol/L (21-32); Chloride 110 mmol/L (98-107); Creatinine Clr Calc Pharmacy 98.3 ml/min; Est GFR (African American) > 150.0 ml/min; Est GFR (Non-African American) 129.8 ml/min; Globulin 2.9 gm/dl (2.5-4.0); Glucose 90 mg/dl (70-99(Fasting)); Potassium 4.2 mmol/L (3.5-5.1); Sodium 139 mmol/L (136-145); Total Protein 6.6 gm/dl (6.0-8.3)
[2023-05-25 16:38] LABS: INR 1.1 (0.9-1.1)
--- NOTE | 2023-05-25 17:44 | Communication Note ---
Date of Service: May 25, 2023 Repeat CMP with downtrending LFTs. RN spoke with poison control who indicated that the acetylcysteine drip can be stopped. Patient is medically cleared/stable and discharge to psychiatry.
--- NOTE | 2023-05-25 17:49 | Discharge Summary ---
Discharge Summary Date of Service May 25, 2023 Notes For Next Care Provider intentional OD on 15 Tylenol after argument with boyfriend discharge to inpatient psych Medication Changes From Visit none Admission HPI Per Admitting Provider Jonny is a 18-year-old female without significant PMH. She presented for an intentional overdose on the morning of 05/24. She reportedly took 2 handfuls of acetaminophen (around 15 to 20 tablets) while on FaceTime with her boyfriend after she found out that he cheated on her. This was around 05:30am this morning. Boyfriend called 911 and she was brought into the emergency room. At time of admission, she reports that she wanted to harm herself that morning, but had no thoughts of harming others. No prior suicidal attempts. Patient denies co-ingestion with any other substances. She denies alcohol use, tobacco use, or other recreational drug use. She reports that she regrets her decision to take the Tylenol, and is not currently having thoughts of self-harm, SI, or a plan to harm herself upon discharge. She denies hallucinations, vision changes, altered mental status, or confusion this morning. She does endorse having a prior history of anxiety, and has tried outpatient therapy in the past. She reports that she does have a good support system of friends, and that she is close with her parents, however she does not want her parents to know of her current Tylenol overdose. No prior liver issues. She denies PMH of NC, DVT/PE, diabetes, or psychiatric disorders beyond anxiety. She does take control. Patient is hypotensive at 82/59 at time of admission; vitals otherwise stable. ED course: Acetylcysteine protocol NSS 1000 L IV Zofran 4 mg IV ROS: Patient endorses some brain fog and confusion following the events of overdose. Patient denies fever, chills, dizziness, lightheadedness, headache, chest pain, SOB, abdominal pain, N/V/D, or numbness or tingling in arms or legs. Principal Dx & Hospital Course #1 = Principal Diagnosis (1) Intentional overdose: Patient reportedly took 2 handfuls of Tylenol (approximately 15-20 pills) intentionally at 0530 on 05/24 - She was on FaceTime with her boyfriend at that time, and boyfriend called 911 - First suicide attempt; she reports she had thoughts of self-harm at the time, but this was impulsive, and she does not currently have plans to harm herself or SI Acetaminophen level elevated at 171-->138 --> now down to <3 NAC protocol started in the ED within 4 hours - 05/25 RN spoke with poison control and recommending another round of acetylcysteine due increasing LFTs (ordered) - repeat labs for 1600 --> improved LFTs --> posion control advised can stop acetylcysteine Psych consulted - pt agreeable to inpatient stay after medical clearance - does not have to be a 1:1, 15 minute checks (2) Decrease in appetite: Since fall when starting college unintentional weight loss of 5-6kg (3) Protein calorie malnutrition: weight loss of ~5-6kg BMI 18.5 Plan Disposition: discharge to inpatient psych Discharge Exam General: plesant, NAD, VS as above Resp: normal respiratory effort, lungs clear to auscultation CV: RRR, no murmur, Abd: normal bowel sounds, non tender, no hepatosplenomegaly Extremities: Moves all extremities, no edema Neuro: A&O x3, Updated Medication List Medication Instructions Recorded Confirmed Type No Known Home Medications 05/24/23 05/25/23 History Hospital Stay Data Consultations 05/24/23 11:13 ED Decision to Admit Stat 05/24/23 12:41 Consult Psychiatry Routine Pending Results Patient Have Any Pending Studies at Discharge: No Discharge Instructions Given to Patient (Per Discharging Provider) Ms. Yonas hernandez were admitted to the hospital after intention ingestion of Tylenol. At this point you are medically cleared and will move to the behavioral health unit for further treatment and recommendations. Total Time Total Time Spent Total Time Spent (In Minutes): 25 Supervising Physician Co-Signing Physician Notes Attending Attestation and Discharge Note: I did not see the patient for a bedside visit/exam. However, chart was reviewed in detail, and discharge care plan was d/w [facility] Harris. I agree w/ the aguilar components of her discharge documentation. 18yo female, [employer] student, who presented with tylenol overdose. Fortunately LFTs remained stable/normal during her stay. INR did rise modestly to 1.2, but was 1.1 on day of discharge. She underwent NAC protocol for her tylenol overdose. She tolerated this without GI side effects. Peak tylenol level was 171, falling to undetectable by discharge. Patient was seen by psychiatry and [facility]. Other labs and vital signs remained stable while here. Serum test was negative. Creatinine remained normal. Joe Hall MD Coding Level of Care Code 28715 IN/OBS DISCH 30 MIN/LESS Diagnoses Intentional overdose T50.902A Decrease in appetite R63.0 Protein calorie malnutrition E46
--- NOTE | 2023-05-25 18:52 | History & Physical ---
Date of Service May 25, 2023 Impression / Recommendations Impression Essentially, what we seem to have here is a young woman who may be emotionally less mature than her age might suggest who made a very impulsive, but deliberate, suicide attempt by overdose of Tylenol. She strikes me is a reasonably intelligent woman, and is perhaps hard to imagine that she did not realize that taking 15 [id number] acetaminophen tablets were not going to kill her. However, she insist that she believed that it would, and that she had suicidal intent when she took the overdose. She is still clearing medically, but during the interview today she was alert and fully oriented. Her affect was bright, and she said that her mood was "good." My understanding is that the patient may have used visitors phone to communicate throughout the day with her boyfriend; i.e., the young man over home she had made a suicide attempt. The patient tells me with a broad smile that they have reconciled, and she mentions that she is delighted by the reconciliation because it is her hope that 1 day [soon] they will . Of course the risk, both short-term and long-term, is that she will have a similar behavioral reaction should she suffer a romantic disappointment with young man in question. When I asked her what she would do if, say a few months from now, he called her up and told her that he had found someone else and wanted to break up patient said, "well, I will be really sad and upset, but what I want to do is take another overdose. That was really stupid. I guess I will grieve and then move on." (1) Intentional overdose: 05/25/23: The underlying problem that would have led to the patient taking a potentially lethal overdose, spontaneously, and without much forethought is not entirely clear. She may have some difficulty regulating her mood, although this has not been made clear. She does acknowledge that she has always had a tendency in the direction of trauma, but she is also a woman of good intelligence, with no family history of similar behaviors. It seems likely that the overdose was situational, and occurred within the number of mitigating circumstances, such as stress in anticipation of the upcoming spring break at [employer], pressure to keep her scholarship, and the fact that she had not slept well the night before the overdose and was very tired. I also believe that the patient has probably been sensing for a while that her boyfriend is pulling away. While this may not be true, it appeared that she was very quick to believe that he was cheating on her, and I am concerned that he seems to have misrepresented the truth and telling patient that he could not travel to say because this year, as he had promised, because of a unspecified "weather event" that was brewing or occurring in [facility], or elsewhere on the route to [place]. I was not able to find evidence online that this was the case yesterday or today. In fact, the weather forecast for tomorrow is full sun, with a high of 42 F. As noted above, our concern is that if what seems to have been empty promises by the boyfriend and being compounded while the patient is quite vulnerable, there may be another impulsive act, and we believe she needs further observation and stabilization on a locked unit with spectrum of psychiatric staffing and the ability to provide suicide precautions in a safe, ligature free, locked unit. 05/24/23: Although the patient denies any psychiatric history and although she also reports that she has not been feeling depressed, her description of developing almost immediate suicidal intent, and then acting on that intent, based largely on suspicion that her boyfriend was cheating on her with another woman suggests a certain regulation difficulty, characterized largely by compulsivity and emotional lability. By the afternoon of the day and when she took an overdose the patient is seen that she had suicidal intent in the morning when she took an overdose of Tylenol, but no such intent or thoughts of suicide remain. She does understand that the impulsive and potentially lethal nature of her act suggest that there is a problem, and she is willing to come to the locked psychiatric inpatient unit at [facility] when cleared medically. Suicide Risk Level Suicide Risk Level: Moderate (q15 min suicide checks) Suicide Risk Level Comments: The patient is future oriented. She also has no history of any previous suicide attempts and, in fact, insist that she has never even had suicidal thoughts in the past. However, the impulsive nature of the overdose that she took yesterday morning is of concernparticularly right now when it appears to me and the rest of the psychiatric liaison team that her romantic relationship may actually be "headed south." We are not sure how she might react, although she tells us that she is prepared for this to happen, and if it does she believes that she will be sad, but at this point we will be able to move on. At the same time, she reiterates that her goal is to this boyfriend, and she says repeatedly that she is in love with him. Risk Factors Assessment Do You Have Access To A Gun?: No Health Problems: No Mental Health Diagnoses: Yes Substance Use Disorders: No Previous Attempt: No Family History of Suicide: No Previous Psychiatric Hospitalization: No Hopelessness: No Protective Factors Assessment Jewish Beliefs: No : No Responsible for Young Children: No Employed: Yes ([employer] on [employer] campus) Stable Relationships: No Supportive Family: Yes (The patient's position is that she doesn't want to contact family now.) Good Rapport with Provider: No Psychiatric History Identifying Data VIPUL WATERS is a 18-year-old F who currently lives in the [facility] dormitory. 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 She is admitted to the [facility] behavioral [facility] unit for safety on the 201 voluntary agreement. Chief Complaint "Yes, I took an overdose of Tylenol because I thought my boyfriend was cheating on me. I have to take responsibility for what I did." History of Present Illness The patient is a 18-year-old woman who is currently a second semester freshman student at [employer]. She tells me that she is doing well in school and has a number of local friends. She also likes [employer], tells me that she finds [place] to be a delightful place to live. Her boyfriend lives in [place], and they often communicate telephonically or electronically. As best I can tell, yesterday the patient thought that she had reason to believe that her boyfriend was, or might be cheating on her with another woman. (Note: She later this probably was not the case.) Subsequently, and in a highly emotional state, the patient took a Lembert overdose of acetaminophen (Tylenol). She estimates that she took approximately 15 acetaminophen tablets. She notes that she thought that her first handful of tablets was comprised of 9 tablets, and then she said she took "about half a get as many" with the next handful. She was on the telephone with her boyfriend at the time, told him which she had done, and he called the police for a wellness check. Reportedly, a count of her Tylenol bottle's contents indicated that approximately 15 tablets were missing. The patient was then transported to [facility]'s emergency department and was admitted to the hospital, but is currently boarding in the emergency department while she waits for an available bed on the medical floor. She is not yet cleared medically and is not expected to be cleared medically for approximately another day. The patient tells me that she never had any suicidal ideation prior to this morning, and she has never intentionally caused physical harm to herself. However, this morning she admitted that she had an intent to when she took the overdose of Tylenol, and now is very glad that she did not. The mitigating factor here is that according the patient she and her boyfriend have reconciled, and she tells me that their long-term plan is to . I ask her if she had any thoughts about that decision, given her remaining uncertainty as to whether her boyfriend was cheating on her. She told me that she wants to him because she is in love with him she realizes th at she may need to make certain compromises. He has Shuchismita tells me that she is not aware of any other stressors in her life. She reports that she is doing well in school, and meeting the necessary GPA to sustain her scholarships. She has formed a number of friends at [employer], and, as noted above, she is fond of both [place] and [place]. Her parents live in [facility], but is not clear if she has notified them. The patient reports no premorbid psychiatric history and no previous contact with a psychiatric community. She also reports that she has never taken medications, and has never been treated for depression. However, on the day of admission, the patient's boyfriend failed to appear after he had told her that he was going to be driving from the [facility] to [place] to visit her, but did not appear. They have continued to talk through electronic means, and reportedly the boyfriend has explained his absence in terms of "a snowstorm." The patient says that she is vaguely aware that there is no snowstorm in [facility], but acknowledges that they may be one that may develop. (I checked the national weather service, and there is no storm prediction and the route from [place] to [place]. In fact, the predicted weather for tomorrow, 05/26/2023 is Thursday with a high of 42 degrees. The patient is an intelligent woman, and my concern is that she will discover she is being lied to, within the context of the fact that she also believes that her boyfriend had cheated on her with another woman. Reaction to this, if true, may be unpredictable. On the other hand, the patient knowledges that the boyfriend may appear tomorrow. Have been a plan to admit the patient to the behavioral health unit this morning, but her liver enzymes had increased overnight (within the context of the Tylenol overdose) and additional treatments with acetylcysteine today was recommended. She has now been cleared medically for discharge from medicine, and the plan is to admit her to psychiatry voluntarily as above. The patient reports that her grades are good, she is in no academic trouble, she "loves" [employer] and [place], and has a number of friends here at the [employer]. Past Psychiatric History Previous Psych History: Patient reports that she has no previous psychiatric history. There has been a question of possibility of a eating disorder (anorexia) with her compensatory behavior being fasting. However, her BMI is not such that it would be considered a concern today, and she appears to be of a healthy weight. Current Psychiatric Diagnosis: Denies Outpatient Services: Patient has no history of any previous contact with a psychiatric community. She has never taken any psychiatric medications. She has never seen a therapist. She also reports that she has no history of intentional self- injurious behaviors, and the impulsive act that led to her Previous Psych Admissions: None Do You Have Access To A Gun?: No History of Previous Suicide Attempt: No Describe Attempts in the Past: Patient insist that she has no history of intentional self-injurious, Past Medication Trials: None Past Head Trauma/Neuro History Patient reports that she has no history of head injuries, concussion, traumatic loss of consciousness, or seizures. Allergies Allergy/AdvReac Type Severity Reaction Status Date / Time No Known Allergies Allergy Unverified 05/24/23 07:30 Home Medications Medication Instructions Recorded Confirmed Type No Known Home Medications 05/24/23 05/24/23 History Family History Family History of: None Alcohol History Hx of Alcohol Use Over the Past 12 Months: Yes (Occasional) Smoking Use Have You Smoked or Used Tobacco Products in the Last 30 Days: No Smoking Status: Never smoker Substance History Hx of Prescription Med Misuse Over the Past 12 Months: No Hx of Over the Counter Med Misuse Over the Past 12 Months: No Hx of Inhalent Misuse Over the Past 12 Months: No Hx of Organic Substance Use Over the Past 12 Months: No Hx of Illegal Substances/Street Drug Use Over Past 12 Months: No Problems as a Result of Past Substance Use: None Identified Personal History Living Arrangements: Dorm Living Arrangements Comments: The patient is a second semester freshman at [employer]. She is majoring in engineering, notes that she has made a number of friends in college. Highest Grade Completed: High School Graduate (She also has completed the first semester of her freshman year at [employer], and is now a second semester freshman.) and Some College Employment Status: Student Beliefs That Will Affect Care: None Current Legal Problems: No Hx Legal Problems: No Hx Traumatic Life Events: No Psychological Trauma History Comment: Patient reports no traumatic life events Patient History Social History Smoking Status: Never smoker Second Hand Exposure: No; Do You Dip or Chew Tobacco: No; Hx Alcohol Use: Yes Hx Substance Use: Yes Last Used Substance: Unknown Preferred Language: Welsh Communication Ability: Effective Ladies Attendant Required: No Beliefs That Will Affect Care: None Current Living Situation Comment: lives in dorm at [employer] Feels Safe at Home: Yes Gender Identity: Female Assistive Devices: Glasses Review of Systems Constitutional: The patient appears thin, but of a healthy weight. She is short in stature. Eyes: The patient reports no ocular problems. She also reports that she has regular eye examinations. Ear, Nose, Mouth, Throat: Patient reports no problem with her hearing, her nose, or mouth or her throat. Respiratory: Patient reports that she does not have any current respiratory difficulties. Cardiovascular: Additional Comments: Patient reports no cardiac history of any sort. She notes that her blood pressure runs normal when checked. Gastrointestinal: Patient does report some GI symptoms when anxious and, particularly, when disgusted by some she is seen. (She was being "groomed" by her parents to become a physician, but she learned that the side of blood made her sick to her stomach. Genitourinary: Patient reports regular menses without any recent interruption interruption. Musculoskeletal: Patient reports no musculoskeletal abnormalities. Neurologic: No history of head injury, concussions, seizures. Psychiatric: Ms. Waters reports that she has no history of any psychiatric problems. She describes her suicide attempt yesterday morning (by Tylenol overdose) as being "a stupid mistake" as well as something that she had done impulsively. She also explains that she had slept poorly the night before and was "tired and cranky" at the time. Endocrine: Patient reports no history of endocrinologic problems, including, but not limited to, diabetes, thyroid condition, or pituitary disease. Physical Exam Mental Examination: Appearance: Well Groomed Eye Contact: Maintains Eye Contact Motor Behavior: Unremarkable Speech: Soft Mood: Calm and Sad Affect: Calm and Sad Thought Process: Intact Insight: Poor Judgement: Poor Psychiatric: As of 05/25/2023 when reevaluated by the undersigned Patient is oriented to person, place, time and situation. The patient is found in a hospital bed and is wearing a hospital gown. She is a ttached to several monitors. However, she is neatly and appropriately groomed. Fairly good eye contact No abnormal involuntary movements Patient's speech is spontaneous. She can be quite talkative. Her words are delivered at a normal rate, rhythm, and volume. Patient's affect is fairly bright. Apparently, she had not been told about the elevated liver enzymes, and when I mentioned that to her as the reason she had not been discharged and admitted to the behavioral health unit, she became solemn, looked in the eye, and said, "I am scared." However, she brightened following some reassurances and additional information. "Pretty good. I am frustrated that my boyfriend did not come to [place] like he promised." Patient's associations are tight and goal-oriented. Patient's thought content is devoid of any psychotic features. See reveals no delusional material in her thought content, and there is no evidence of a thought disorder. The patient strongly voices the fact that she has no suicidal thoughts at the present time. However, as I pointed out to the patient, the fact that she cannot exactly explain why she took an overdose of Tylenol1 that might have been lethalso spontaneously is a cause of concern, particularly with the context of the fact that the romantic relationship involved may not be as stable as she had believed it to be when I also saw her yesterday afternoon. Patient reports that she has no thoughts of causing physical harm to the person or property of others. I had asked her if she thought that she would have such thoughts if it was determined that, in fact, her boyfriend was cheating on her. The patient laughed, and said something such as, "well, not THAT stupid." I see no evidence of any auditory or visual hallucinations. Patient's immediate, recent, and long-term memory are grossly intact. The patient's intelligence is estimated to be above average. This is based on her academic achievement, the fact that she is in an engineering program at [employer] and doing well, and, also, her intelligence is based on her vocabulary and ability to think in the abstract. Limited. However, the patient does acknowledge that the fact for taking an overdose of medications impulsively and intentionally is entirely hersno matter what her boyfriend may or may not have done. Fair. She acknowledges that "obviously something went wrong" when she took an overdose of medications. She repeats that she had never had any thoughts of suicide open to the point that she took the overdose. And she tells me, quite frankly, that she had suicidal intent when she took the overdose. She notes that now she is "very happy" that she did not succeed, but the fact remains that she had truly intended to when she took the overdose. I am concerned that the patient is declining to contact anyone in her family about this episode. Of what she talk to me about is the question of whether we can make sure that her parents do not get billed by the hospital if there is some element of her stay that is not covered by her student health insurance. Her fear, of course, is that her parents will put 2 and 2 together and realized that she was hospitalized without telling them. She also says that she has a close relationship with her brother, man who is currently a student at [employer] in [place]. However, she is also choosing not to tell him. Vital Signs (Past 24 Hours): Last Vital Signs Temp 36.7 C 05/24/23 06:15 Pulse 99 H 05/25/23 18:30 Resp 18 05/25/23 18:30 BP 95/60 L 05/25/23 18:30 Pulse Ox 100 05/25/23 18:30 O2 Del Method Room Air 05/25/23 18:30 Physical Examination: The physical examination completed by [employer] Faith, and cosigned by José Manuel Abdullahi MD of the emergency department on 05/24/2023 are excepted for the purposes of medical clearance to the [facility] unit. Results & Data ([facility]) Laboratory Results Laboratory Results - last 24 hr 05/24/23 05/25/23 05/25/23 19:29 06:13 15:59 WBC 6.16 RBC 4.36 Hgb 12.3 Hct 38.2 MCV 87.6 MCH 28.2 MCHC 32.2 RDW Std Deviation 41.6 RDW Coeff of Naomi 13.0 Plt Count 211 MPV 11.0 Immature Gran % (Auto) 0.3 Neut % (Auto) 38.5 Lymph % (Auto) 51.0 [place] % (Auto) 8.1 Eos % (Auto) 1.5 Baso % (Auto) 0.6 Neut # (Auto) 2.37 Lymph # (Auto) 3.14 [place] # (Auto) 0.50 Eos # (Auto) 0.09 Baso # (Auto) 0.04 Immature Gran # (Auto) 0.02 PT 12.6 H 12.0 INR 1.2 H 1.1 Sodium 137 139 139 Potassium 3.4 L 3.6 4.2 Chloride 110 H 110 H 110 H Carbon Dioxide 21 23 25 Anion Gap 6 6 4 BUN 5 L 4 L 5 L Creatinine 0.64 0.68 0.62 Est Cr Clr Drug Dosing 95.2 89.6 98.3 Est GFR ( Amer) 148.9 145.9 > 150.0 Est GFR (Non-Af Amer) 128.5 125.9 129.8 BUN/Creatinine Ratio 7.8 L 5.9 L 8.1 L Glucose 137 H 91 90 Calcium 8.5 L 8.7 9.1 Phosphorus 2.0 L Magnesium 2.0 Total Bilirubin 0.5 0.7 0.4 Direct Bilirubin 0.1 AST 19 29 19 ALT 13 24 21 Alkaline Phosphatase 41 36 41 Total Protein 6.4 6.4 6.6 Albumin 3.7 3.9 3.7 Globulin 2.7 2.9 Albumin/Globulin Ratio 1.4 1.3 Acetaminophen 18 < 3 L Current Inpatient Medications Current Inpatient Medications: Current Inpatient Medications Ondansetron HCl (Ondansetron Inj 2 Mg/Ml 2 Ml Vial) 4 mg IV Q6H PRN PRN Reason: Nausea Stop: 06/23/23 12:40
[2023-05-27 23:53] LABS: Marijuana Quant, GCMS Urine 50 ng/mL (<5)
--- NOTE | 2023-06-01 09:23 | Coding Query ---
MALNUTRITION To promote full compliance with coding requirements relating to patient care, physician participation is requested in all cases of saturation equipment operator uncertainty. Please assist us with the question(s) below: Please place an X within the parenthesis (x). If other, please document: "Protein Calorie Malnutrition" is documented in this record on the Discharge Summary. If possible, please check the box that provides a more specific diagnosis: ( xx) Mild malnutrition ( ) Moderate malnutrition ( ) Severe malnutrition ( ) Protein malnutrition (kwashiorkor) ( ) Severe protein calorie malnutrition ( ) Protein calorie malnutrition, unspecified ( ) Other (please specify): Was this diagnosis present on admission? Please place an X within the parenthesis (x). (xx ) Present on admission ( ) Not present on admission ( ) Unable to be clinically determined Thank you Jeny LAURA
== END 2023-05-25 20:00 | DRG 918 ==
LOC: EDBD → ED 06:09 → SUATTDRO 12:21 → EDINP 12:21

== ENCOUNTER 2023-05-25 17:52 | Inpatient (IN) ==
[2023-05-25] MEDS ORDERED: hydrOXYzine HCl 25 MG TAB PO PRN (17:53)
[2023-05-25] MEDS ORDERED: ALUMINUM/MAGNESIUM SUSP 30 ML UDC PO PRN (17:53)
[2023-05-25] MEDS ORDERED: ACETAMINOPHEN 325 MG TAB PO PRN (17:53)
[2023-05-25] MEDS ORDERED: SODIUM CHLORIDE 0.65% NA SOLN 45 ML (OCEAN) PRN (17:53)
[2023-05-25] MEDS ORDERED: BISMUTH SUBSALICYLATE LIQD 236 ML PO PRN (17:53)
[2023-05-26] MEDS: hydrOXYzine HCl 25 MG TAB PO PRN (00:21)
[2023-05-26] MEDS: MAGNESIUM HYDROXIDE SUSP 30 ML UDC PO PRN (11:26)
--- NOTE | 2023-05-26 15:47 | Psychiatric Progress Note ---
Date of Service May 26, 2023 Impression / Recommendations Impression 18 yo female s/p Tylenol ingestion over relationship issues. Resistant to family or local support involvement. Did not request 72 hr notice and is agreeable to stay overnight for additional monitoring pending safety plan and meeting with boyfriend. Overall, I spent a total of 37 minutes with this case, including review of chart, review of records, direct evaluation of the patient, counseling the patient, coordination with nursing, and documentation. (1) Depressive disorder: Plan ongoing inpatient hospitalization with prn Vistaril. Suicide Risk Level Suicide Risk Level: Moderate (q15 min suicide checks) Interval History Identifying Information IVPUL WATERS is a 18-year-old F who currently lives in the [facility] dormitory. 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 She is admitted to the [facility] behavioral health unit for safety on the 201 voluntary agreement. Chief Complaint "I just want to leave, this place won't help me, I need to message my friends." Review of Systems Sleep Information Total Hours of Sleep: 4.45 Sleep Comments: Pt required Vistaril PRN for sleep. Meal Information Percent Meal Consumed - Breakfast: 50 Percent Meal Consumed - Lunch: 40 Subjective Subjective Patient was seen & assessed and interval progress reviewed with nursing and social work. No acute issues over night. Continues to minimize ingestion as "in the past." accepted Vistaril for sleep but does not want medication on a standing basis. No physical complaints. Physical Exam Psychiatric Orientation: alert and oriented x 3 Apperance: appropriately dressed and appropriately groomed Eye Contact: good eye contact Motor Behavior: no abnormal motor movements Speech: normal rate/rhythm/volume of speech Affect: + depressed affect Mood: + depressed mood Thought Process: goal directed thought process Thought Content: reality based without delusions Suicidal Thoughts: denies suicidal thoughts Homicidal Thoughts: denies homicidal thoughts Hallucinations: no auditory hallucinations and no visual hallucinations Cognition: attention grossly intact and language grossly intact Estimated Intelligence: consistent with education level Insight: + limited insight Judgment: + limited judgement Vital Signs (Past 24 Hours) Last Vital Signs Temp 36.4 C L 05/26/23 06:44 Pulse 55 L 05/26/23 06:45 Resp 16 05/26/23 06:44 BP 98/65 L 05/26/23 06:45 Pulse Ox 100 05/25/23 20:33 O2 Del Method Room Air 05/25/23 20:33 Results & Data (U) Current Inpatient Medications Current Inpatient Medications: Current Inpatient Medications Acetaminophen (Acetaminophen 325 Mg Tab) 650 mg PO Q4H PRN PRN Reason: Headache or Minor Fever Stop: 06/24/23 17:52 Al Hydrox/Mg Hydrox/Simethicone (Aluminum/Magnesium Susp 30 Ml Udc) 30 ml PO Q4H PRN PRN Reason: GI Upset Stop: 06/24/23 17:52 Bismuth Subsalicylate (Bismuth Subsalicylate Liqd 236 Ml) 15 ml PO PRN PRN PRN Reason: Loose Stool Stop: 06/24/23 17:52 Hydroxyzine HCl (Hydroxyzine Hcl 25 Mg Tab) 50 mg PO HSZ PRN PRN Reason: Insomnia Stop: 06/24/23 17:52 Last Admin: 05/26/23 00:21 Dose: 50 mg Hydroxyzine HCl (Hydroxyzine Hcl 25 Mg Tab) 25 mg PO Q4H PRN PRN Reason: Anxiety Stop: 06/24/23 17:52 Magnesium Hydroxide (Magnesium Hydroxide Susp 30 Ml Udc) 30 ml PO DAILY PRN PRN Reason: Constipation Stop: 06/24/23 17:52 Last Admin: 05/26/23 11:26 Dose: 30 ml Sodium Chloride (Sodium Chloride 0.65% Na Soln 45 Ml ([place]ettinger)) 1 - 2 sprays NA PRN PRN PRN Reason: Nasal Dryness/Congestion Stop: 06/24/23 17:52 Mental Health & Subst Abuse Tx Therapist Name of Therapist: ZANA Peres Therapist's Date of Therapist Appointment: 06/02/2023 Time of Therapist Appointment: 3:30pm [facility] Post Discharge Appointments Primary Care Physician Name Of Family Doctor/PCP: [facility] Primary Care Time of Appointment with PCP: please follow up as needed Provider Appointment Comment: [facility] Contact Information Discharge Discharge Address: [address] [place] [id number]
--- NOTE | 2023-05-27 09:15 | Discharge Summary ---
Date of Service May 27, 2023 History of Present Illness As per Dr. Razo on admission: The patient is a 18-year-old woman who is currently a second semester freshman student at [employer]. She tells me that she is doing well in school and has a number of local friends. She also likes [employer] [facility], tells me that she finds [place] to be a delightful place to live. Her boyfriend lives in [place], and they often communicate telephonically or electronically. As best I can tell, yesterday the patient thought that she had reason to believe that her boyfriend was, or might be cheating on her with another woman. (Note: She later this probably was not the case.) Subsequently, and in a highly emotional state, the patient took a Lembert overdose of acetaminophen (Tylenol). She estimates that she took approximately 15 acetaminophen tablets. She notes that she thought that her first handful of tablets was comprised of 9 tablets, and then she said she took "about half a get as many" with the next handful. She was on the telephone with her boyfriend at the time, told him which she had done, and he called the police for a wellness check. Reportedly, a count of her Tylenol bottle's contents indicated that approximately 15 tablets were missing. The patient was then transported to [facility]'s emergency department and was admitted to the hospital, but is currently boarding in the emergency department while she waits for an available bed on the medical floor. She is not yet cleared medically and is not expected to be cleared medically for approximately another day. The patient tells me that she never had any suicidal ideation prior to this morning, and she has never intentionally caused physical harm to herself. However, this morning she admitted that she had an intent to when she took the overdose of Tylenol, and now is very glad that she did not. The mitigating factor here is that according the patient she and her boyfriend have reconciled, and she tells me that their long-term plan is to . I ask her if she had any thoughts about that decision, given her remaining uncertainty as to whether her boyfriend was cheating on her. She told me that she wants to him because she is in love with him she realizes that she may need to make certain compromises. He has Shuchismita tells me that she is not aware of any other stressors in her life. She reports that she is doing well in school, and meeting the necessary GPA to sustain her scholarships. She has formed a number of friends at [employer], and, as noted above, she is fond of both [place] and [place]. Her parents live in [facility], but is not clear if she has notified them. The patient reports no premorbid psychiatric history and no previous contact with a psychiatric community. She also reports that she has never taken medications, and has never been treated for depression. However, on the day of admission, the patient's boyfriend failed to appear after he had told her that he was going to be driving from the [facility] [facility] to [place] to visit her, but did not appear. They have continued to talk through electronic means, and reportedly the boyfriend has explained his absence in terms of "a snowstorm." The patient says that she is vaguely aware that there is no snowstorm in [facility], but acknowledges that they may be one that may develop. (I checked the national weather service, and there is no storm prediction and the route from [place] to [place]. In fact, the predicted weather for tomorrow, 05/26/2023 is Thursday with a high of 42 degrees. The patient is an intelligent woman, and my concern is that she will discover she is being lied to, within the context of the fact that she also believes that her boyfriend had cheated on her with another woman. Reaction to this, if true, may be unpredictable. On the other hand, the patient knowledges that the boyfriend may appear tomorrow. Have been a plan to admit the patient to the behavioral health unit this morning, but her liver enzymes had increased overnight (within the context of the Tylenol overdose) and additional treatments with acetylcysteine today was recommended. She has now been cleared medically for discharge from medicine, and the plan is to admit her to psychiatry voluntarily as above. The patient reports that her grades are good, she is in no academic trouble, she "loves" [facility] and [place], and has a number of friends here at the [place]. Physical Exam Psychiatric See admission H&P and DOD assessment. Vital Signs (Past 24 Hours) Last Vital Signs Temp 36.4 C L 05/27/23 06:00 Pulse 80 05/27/23 06:12 Resp 16 05/27/23 06:00 BP 93/63 L 05/27/23 06:12 Pulse Ox 100 05/26/23 22:30 O2 Del Method Room Air 05/26/23 22:30 Principal Diagnosis depression Psychiatric Data See daily stay summary. In short, safety was maintained and the patient was cooperative with care. She used Vistaril prn for sleep solely as upset about remaining in the hospital. She did experience mild dizziness, most of which she attributed to menstrual cramps and spotting (had taken plan B this month so not typical for her). She declined antidepressant trials or and medications at discharge and attributed her gesture to a misunderstanding around a relationship issues. She was attention seeking at times on the unit but consistently denied SI or urge to self-injure. She did have a bottle of >300 Tylenol in her personal belongings which will be destroyed as she has no one local to secure. A safety plan was completed prior to discharge. She signed a 72 hour notice yesterday afternoon and continues to request discharge. As she is exhibiting no evidence of impulse control, rupert, or psychosis, further confinement against her wishes seems counter therapeutic and she will be discharged to therapy at [facility]. She is future focussed with regards to spending spring break with family. Day of Discharge Assessment Today the patient voices readiness for discharge. They note improvement in mood and deny thoughts to harm self or others. Thoughts remain organized and they are improved from admission. There is no evidence of psychosis. They agree to take mediations as prescribed and keep follow-up appointments. They are stable for discharge to outpatient level of care. Transition of Care Transition Of Care Record: was reviewed with the patient Advance Directives Advance Directives Information Provided: Yes Advance Directives: No Mental Health Advance Directive: No Advance Directives on File: No Living Will: No Power of Machine Feeder: No Advance Directives Reason:: Declines as Mental Health Visit. Suicide Risk Level Suicide Risk Level Comments: Suicide risk at discharge is deemed low as the patient is no longer requiring 2 4-hr monitoring, has a safety plan, and is free of suicidal ideation at discharge. Risk Factors Assessment : No Do You Have Access To A Gun?: No Mental Health Diagnoses: Yes Substance Use Disorders: No Previous Attempt: No Previous Psychiatric Hospitalization: No Protective Factors Assessment Supportive Family: Yes (though refused to involve) Tobacco Cessation at Discharge Tobacco Cessation Medication Prescribed at Discharge: Not Applicable/Non-Smoker Total Time Total Time Spent: Less Than 30 Minutes Hospital Course (1) Depressive disorder: Plan 05/26/23--ongoing inpatient hospitalization with jaidapromise Niels. 05/25/23--as per Dr. Razo in H&P. Mental Health & Subst Abuse Tx Therapist Name of Therapist: ZANA Peres Therapist's Date of Therapist Appointment: 06/02/2023 Time of Therapist Appointment: 3:30pm Therapy Appointment Comment: [facility], 5th Floor Post Discharge Appointments Primary Care Physician Name Of Family Doctor/PCP: [facility] Primary Care Time of Appointment with PCP: please follow up as needed Provider Appointment Comment: [facility] Smoking Cessation Counseling Tobacco Cessation Medication Prescribed at Discharge: Not Applicable/Non-Smoker Other #1: Name of Aftercare Appointment: ZANA Mckeon Phone Number of Aftercare Appointment: [phone] Date of Aftercare Appointment: 05/29/23 Time of Aftercare Appointment: 2pm Aftercare Appointment Comment: phone check-in Contact Information Discharge Discharge Address: [address] [place] [id number] Discharge Plan Discharge Items Patient Disposition: Home - Self-Care Reason For Visit: MDD Discharge Diagnosis: Depression Activity: Resume your previous activity Non-emergency contact: Primary Care Provider and Therapist Call non-emergency contact if: you have any medication questions and your symptoms worsen Follow-up/Referrals: [facility] [Primary Care Provider] - Diet: Regular Addtl Attending Provider Instructions: SPECIAL CARE INSTRUCTIONS: 1. Follow through with your scheduled aftercare appointments. If unable to keep an appointment, please call to reschedule. 2. N/A Take your medication only as prescribed. Medication should not be changed or stopped without the approval of your doctor. In the event of worsening symptoms or concerns about side effects, contact your doctor immediately. 3. Utilize new healthy coping skills, anger management skills, and stress management skills learned during your hospitalization. Journal feelings and process them with a support person. Identify stressors or situations that may result in relapse, deterioration or inappropriate behaviors and develop a plan to deal with those issues. 4. If your coping skills are ineffective and you are in crisis, contact your outpatient providers for direction. If unable to reach your providers, please call the [facility] CRISIS LINE AT , go to the [facility] walk-in center at [address], [address], [place], or go to the closest Emergency Room. 5. Avoid alcohol and un-prescribed drugs. 6. You have been provided with the Mental Health Advance Directives Pamphlet for your review. 7. Your condition is stable for discharge to outpatient level of care, but recovery is an ongoing process. Ifthoughts to harm yourself or others return, follow the safety plan developed during your stay. Planning for a safe return home includes securing weapons. Our treatment team recommends weaponsbe removed from the home until your outpatient provider reassesses your progress. In rare cases where the items themselvescannot be removed, guns and ammunitionshould be secured separatelyand keys stored by a reliable personoutside of the home. If you were admitted on an involuntary commitment, the police or other legal authorities may be involved in this process. AFTERCARE APPOINTMENTS: * Please call your insurance company prior to your scheduled appointment to confirm your aftercare providers are covered. Take your insurance information to your appointments. WHO TO CALL AND WHEN: Medical Emergencies: For questions or emergencies related to your hospital stay, please contact the Inpatient Behavioral Health Unit at [phone]. A azure architect is on-call 27/10 for the Behavioral Health Unit for emergencies At any time you feel your situation is an emergency, you may also call 911 immediately. Pending Studies at Discharge: No Stand-Alone Forms: My [facility] [employer], Smoking Cessation Medications and DC Order Prescriptions: Continued No Known Home Medications Discharge Orders: Discharge Order (Routine); Ordered 05/27/23 Ordered By: Natalie Coffey Admission Data Admit Date/Time: 05/25/23 20:00 Attending Provider: Natalie Coffey Admit Provider: Tanner Razo Primary Care Provider: [facility] Other Interventions: Discharge Summary Assessment (RN) Last Done: 05/27/23 09:47 PSY Interdisciplinary Discharge Planning Last Done: 05/27/23 09:53 Coding Level of Care Code 27303 D/C day mgmt 30 min or < Diagnoses Depressive disorder F32.A
[2023-05-27] MEDS ORDERED: DESTROY THIS MEDICATION ONE (11:23)
== END 2023-05-27 10:45 | disposition home or self-care (01) | DRG 881 ==
LOC: SUATTDRO 20:00 → 3S 20:00
DX: Z63.0 Problems in relationship with spouse or partner; F32.A Depression, unspecified; R45.851 Suicidal ideations